=== PATIENT | female | born 1985 | race Caucasian/White ===

== ENCOUNTER 2022-04-08 15:29 | Emergency (ER) | payer OTHER, SELFPAY | END 2022-04-08 16:00 | disposition left against medical advice (07) | PROVIDERS: PCP Family Medicine | DX: Z53.21 Procedure and treatment not carried out due to patient leaving prior to being seen by health care provider (principal) | CPT/HCPCS: 99199 ==

== ENCOUNTER 2024-05-05 14:18 | Emergency (ER) | payer OTHER, SELFPAY ==
[2024-05-05 14:21] VITALS: BP 122/67; PULSE 66; RESP 18; TEMP 36.9; O2SAT 99
--- NOTE | 2024-05-05 14:53 | ED_ITS ---
HPI - Dental/Oral General Chief complaint: Dental/Oral Stated complaint: Dental Pain Time Seen by Provider: 05/05/24 14:50 Source: patient and RN notes reviewed Mode of arrival: ambulatory Limitations: no limitations History of Present Illness HPI Narrative: Patient presents today complaining of left upper dental pain x2 days. States she has some broken teeth that have been broken for some time. She cannot get into her dentist for 2-3 more weeks. She has been taking Tylenol and ibuprofen with some mild relief. Reports she came in for evaluation today due to some swelling to the face. Denies fever, shortness of breath, difficulty swallowing, trismus. Related Data Home Medications ?Medication ?Instructions ?Recorded ?Confirmed ?Last Taken ?Type fluoxetine 40 mg capsule mg 05/05/24 Unknown History gabapentin 600 mg tablet mg 05/05/24 Unknown History meloxicam 7.5 mg tablet mg 05/05/24 Unknown History methocarbamol 750 mg tablet mg 05/05/24 Unknown History Allergies Allergy/AdvReac Type Severity Reaction Status Date / Time No Known Allergies Allergy Verified 05/05/24 14:27 Review of Systems Review of Systems: CONSTITUTIONAL: Denies body aches, fever, chills, or sweats. EYES: Denies visual changes, redness, or discharge. ENT: Denies rhinorrhea, congestion, sore throat, or otalgia.+ dental pain and facial swelling CARDIOVASCULAR: Denies chest pain, palpitations, or edema. RESPIRATORY: Denies cough or dyspnea. GASTROINTESTINAL: Denies abdominal pain, nausea, vomiting, or diarrhea. GENITOURINARY: Denies dysuria or hematuria. SKIN: Denies rash, itching, or wounds. MUSCULOSKELETAL: Denies back pain, joint pain, or myalgia. NEUROLOGIC: Denies headache, numbness, tingling, or weakness. PSYCH: Denies depression or anxiety. PMFSH Comments At time of signature, I have reviewed and agree with nursing past medical, surgical, social and family history unless otherwise noted. Please see nursing chart for further information. There is no relevant family history pertinent to the presenting complaint Exam Narrative: GENERAL: Well-appearing, well-nourished, and in no acute distress. HEAD: Normocephalic, atraumatic. EYES: EOMI. No redness or drainage. Conjunctivae normal. ENT: Mucous membranes pink and moist. Nares clear. No rhinorrhea. Throat normal. Uvula midline. Patient complaining of pain to tooth 12.. It is black in color and decayed to a small point. There is a tiny periapical abscess above tooth 9. Patient has severe gross dental decay. No trismus. Mild facial swelling to the left upper cheek. NECK: Normal AROM. Supple. No lymphadenopathy. CHEST: No respiratory distress. Clear to auscultation. HEART: Regular rate and rhythm. No murmur appreciated. EXTREMITIES: Normal range of motion. No edema. SKIN: Warm, dry, no rash. Capillary refill normal. Normal skin turgor. NEURO: No focal deficits. Alert and oriented x3. Gait steady. PSYCH: Normal affect. No signs of depression or anxiety. Course Course Level of Care: Express Care Visit Vital Signs Vital signs: Vital Signs Temperature 98.4 F 05/05/24 14:21 Pulse Rate 66 05/05/24 14:21 Respiratory Rate 18 05/05/24 14:21 Blood Pressure 122/67 05/05/24 14:21 Pulse Oximetry 99 05/05/24 14:21 Oxygen Delivery Room Air 05/05/24 14:21 Temperature 98.4 F 05/05/24 14:21 Pulse Rate 66 05/05/24 14:21 Respiratory Rate 18 05/05/24 14:21 Blood Pressure 122/67 05/05/24 14:21 Pulse Oximetry 99 05/05/24 14:21 Oxygen Delivery Room Air 05/05/24 14:21 Reviewed MDM - Dental/Oral MDM Narrative Medical decision making narrative: Patient will be started on a course of amoxicillin and will keep her appointment with her dentist. ED precautions given. Differential Diagnosis Differential diagnosis: Likely gingival abscess, dental caries, toothache, dental abscess and fracture of tooth Critical Care Time Critical Care Time Critical Care Time: No Discharge Plan Discharge Clinical Impression: Dental abscess Patient Disposition: Home, Self-Care Condition: Stable Instructions: Antibiotic Form, Dental Abscess (ED) Additional Instructions: Please take the amoxicillin as prescribed until gone. Continue [id number] medication for pain if needed. Follow-up with your dentist as scheduled. As discussed, please go to the ER immediately if you develop worsening symptoms such as fever, shortness of breath, difficulty swallowing. Your blood pressure was elevated above 120/80 today at Urgent Care. This puts you above the threshold for follow up. Please schedule a followup visit with your personal physician as soon as possible, for further evaluation and treatment. Even blood pressure exceeding 120/80 may indicate pre-hypertension. Patient Language: Green[place]ic Prescriptions: New amoxicillin 875 mg tablet 875 mg PO Q12H 10 Days Qty: 20 0RF No Action fluoxetine 40 mg capsule gabapentin 600 mg tablet meloxicam 7.5 mg tablet methocarbamol 750 mg tablet Follow-up/Referrals: Fabián Jim MD [Primary Care Provider] - Time of Disposition: 14:55
== END 2024-05-05 15:00 | disposition home or self-care (01) ==
PROVIDERS: Emergency Provider Nurse Practitioner; PCP Family Medicine
DX: K04.7 Periapical abscess without sinus (principal)
CPT/HCPCS: 99213; G0463